=== PATIENT | male | born 1930 | race Caucasian/White ===

== ENCOUNTER → 2016-05-27 | Outpatient (CLI) | payer MEDICARE | LOC: RAD 10:56 | PROVIDERS: ATTEND Family Medicine | DX: I48.0 Paroxysmal atrial fibrillation (principal) | CPT/HCPCS: 93005 ==

== ENCOUNTER 2016-08-28 20:38 | Emergency (ER) | payer MEDICARE ==
[~2016-08-28] VITALS: Ht 165.1 cm; Wt 57.0 kg
[~2016-08-28 20:38] MED LIST: AC325T PO; ACET325T38 PO; ALB.5NB20; ALBT2T; ALBU0.8322 IH; ALBU8.5H2; ALBU8.5H2 INH; BENZ-13 PO; BUDE6HFA IH; CEFP250T3 PO; CETI10TA20 PO; CHOL378P PO; DICY20TA33 PO; DLT120CCR PO; DOXY100T41 PO; FL025NA25; FL025NA25 NS; FLUT16SP NS; FNST5T PO; GUAI400T35 PO; GUAI400T58 PO; HYDR-3702 PO; LORA10TA7 PO; LORA5SOL42; LRT10T; METH4TAB27 PO; OMEP20CA6 PO; OXYGEN; PRD10T PO; PRD5T PO; PRED20TA PO; PRED5TAB; SENN-1 PO; SPRIVA; TERA2CAP4 PO; TIOT18CA IH; TRZS2T PO; [UNRECOGNIZED DRUG - CODE] PO
--- NOTE | 2016-08-28 20:54 | NUR ---
PT DENIES RECENT COUGH OR CONGESTION. PT DENIES CHEST PAIN. PT REPORTS SOA WITH ANY TYPE OF EXERTION.
[2016-08-28] MEDS ORDERED: SODIUM CHLORIDE FLUSH 10 ML SYR IV PRN ×2 (21:00)
[2016-08-28] MEDS ORDERED: ALBUTEROL/IPRATROPIUM 3MG-0.5MG/3ML (DUONEB) NEB VIAL INH ONE (21:00)
[2016-08-28] MEDS ORDERED: NS IV 500 ML 500 ML IV SCH (21:00)
[2016-08-28] MEDS ORDERED: methylPREDNISolone 125 MG (Solu-MEDROL) VIAL IV ONE (21:00)
[2016-08-28] MEDS ORDERED: SODIUM CHLORIDE 250 ML IV PRN (21:00)
[2016-08-28] MEDS ORDERED: SODIUM CHLORIDE FLUSH 3 ML SYR IV PRN (21:00)
[2016-08-28 21:52] LABS: MEAN CORPUSCULAR HEMOGLOBIN 31.1 PG (26.0-34.0); MEAN CORPUSCULAR HGB CONC 32.3 g/dL (31.0-37.0); MEAN CORPUSCULAR VOLUME 96 FL (80-100); MEAN PLATELET VOLUME 10.1 FL (6.0-9.5); PLATELET COUNT 226 10^3uL (150-450); WHITE BLOOD COUNT 12.82 10^3uL (4.0-11.0)
[2016-08-28 21:53] LABS: ALBUMIN 4.1 g/dL (3.4-5.0); ALKALINE PHOSPHATASE 59 U/L (38-126); BUN/CREATININE RATIO 26 (10-20); CALCULATED IONIZED CALCIUM 4.2 mg/dL (3.8-4.6); CREATINE KINASE 54 U/L (55-170); TOTAL PROTEIN 6.7 g/dL (6.4-8.5)
--- NOTE | 2016-08-28 21:57 | NUR ---
BREATHING TX COMPLETED- PROTECTION AGENT MADE AWARE OF XRAY ORDER.
[2016-08-28 22:46] LABS: BAND NEUTROPHILS % 2 % (0-6); EOSINOPHILS % 1 % (0-4); LYMPHOCYTES # 0.9 #; MONOCYTES # 0.7 #; MONOCYTES % 6 % (3-11); RBC MORPH SEE REFERENCE (NORMAL); SEGMENTED NEUTROPHILS % 84 % (51-67); STOMATOCYTES SLIGHT; TOTAL CELLS COUNTED 100
[2016-08-29 05:02] VITALS: BP 150/80
--- NOTE | 2016-08-29 07:00 | Diagnostic Imaging Report ---
EXAMINATION: Chest radiograph, portable AP view. DATE: August 28, 2016 at 2214 hours. INDICATION: 86-year-old male, shortness of breath. COMPARISON: April 19, 2016. FINDINGS: Stable overall appearance of the cardiomediastinal silhouette. There is redemonstrated mild elevation of the left hemidiaphragm. There is no identified pneumothorax. There is no large pleural effusion. There is no identified interval focal airspace consolidation. IMPRESSION: 1. Redemonstrated elevation of the left hemidiaphragm. 2. No identified interval acute cardiopulmonary abnormality. Dictated by: Dictated on workstation # [id number]
== END 2016-08-28 23:45 | disposition home or self-care (01) ==
LOC: ED 20:39
DX: J44.1 Chronic obstructive pulmonary disease with (acute) exacerbation (principal)
CPT/HCPCS: 36415; 71010; 80053; 82550; 82553; 83880; 84484; 85025; 85610; 85730; 93005; 96374; 99285; J2930; J7040; 99283

== ENCOUNTER → 2016-09-11 | Outpatient (CLI) | payer MEDICARE ==
[2016-09-11 12:06] LABS: ANION GAP 11.2 MEQ/L (3-15)
== END ==
LOC: LAB 11:34
PROVIDERS: ATTEND Family Medicine
DX: R79.89 Other specified abnormal findings of blood chemistry (principal)
CPT/HCPCS: 36415; 80048